=== PATIENT | female | born 1970 | race Caucasian/White ===

== ENCOUNTER 2016-05-19 12:11 | Emergency (ER) | payer OTHER ==
[~2016-05-19] VITALS: Ht 157.5 cm; Wt 59.5 kg
[~2016-05-19 12:11] MED LIST: HYDR-3111 PO; MULT-65 PO
[2016-05-19 12:13] VITALS: BP 152/74; PULSE 78; RESP 24; TEMP 97.9; O2SAT 98
--- NOTE | 2016-05-19 12:54 | PD ---
HPI . neck pain Chief Complaint: Back/ Neck Pain or Injury Time Seen by Provider: 12:44 Travel History International Travel<30 days: No Contact w/Intl Traveler<30days: No Traveled to known affect area: No History of Present Illness HPI Patient presents with a several day history of neck pain. She states that it started in her left neck and has now moved to the right neck. Pain is exacerbated by movement. He states that the pain is severe. It is an aching pain. It is unrelieved by Vicodin. She denies known injury. PFSH Past Medical History Hx Anticoagulant Therapy: No Cardiovascular Problems: No Chemotherapy: No Cerebrovascular Accident: No Diabetes: No Diminished Hearing: No Respiratory: No Immunizations Current: No ?: Unknown Past Surgical History Hysterectomy: No Social History Alcohol Use: Yes ([facility]) Tobacco Use: Yes (1/2) Substance Use: No Allergies-Medications (Allergen,Severity, Reaction): Coded Allergies: No Known Allergies (Unverified , 05/19/16) Reported Meds & Prescriptions Reported Meds & Active Scripts Active Reported Aspirin 81 Mg Tabdr 81 Mg PO DAILY Vicodin (Hydrocodone-Acetaminophen) 5-300 Mg Tab 1 Tab PO Q4H PRN Review of Systems Except as stated in HPI: all other systems reviewed are Neg General / Constitutional: No: Fever, Chills HENT: Positive: Neck Pain Neurologic: No: Weakness, Paresthesia Physical Exam Narrative GENERAL: Awake and alert and in no acute distress. SKIN: Warm and dry. NECK: Diffuse neck tenderness. She will not move her head to side because of pain. CARDIOVASCULAR: Regular rate and rhythm. RESPIRATORY: No accessory muscle use. MUSCULOSKELETAL: No obvious deformities. No edema. NEUROLOGICAL: Awake and alert. No obvious cranial nerve deficits. Motor grossly within normal limits. Normal speech. PSYCHIATRIC: Appropriate mood and affect; insight and judgment normal. Data Data Last Documented VS Vital Signs Date Time Temp Pulse Resp B/P Pulse Ox O2 Delivery O2 Flow Rate FiO2 05/19/16 14:43 70 18 149/78 99 Room Air 05/19/16 12:13 97.9 Orders Lorazepam Inj (Ativan Inj) (05/19/16 13:00) Morphine Inj (Morphine Inj) (05/19/16 13:00) Ct Cerv Spine W/O Contrast (05/19/16 13:39) Ketorolac Inj (Toradol Inj) (05/19/16 13:45) MDM Medical Decision Making Medical Screen Exam Complete: Yes Emergency Medical Condition: Yes Differential Diagnosis Differential diagnosis of neck pain includes but is not limited to muscle spasm/ pain, arthritis, spinal stenosis, HNP, epidural abscess Narrative Course Patient presents with back pain. She has no neurological symptoms. There has been no trauma. Last Impressions Cervical Spine CT 05/19/16 1339 Signed Impressions: Service Date/Time: Thursday, May 19, 2016 14:15 - CONCLUSION: Anterior cervical spine fusion from C5-C7. There is a left-sided osteophyte identified at the level of C5/C6 which contributes to moderate narrowing of the neural foramina on the left.. Lauryn Patel MD Diagnosis Primary Impression: Neck pain Referrals: Abhilash Coleman MD Patient Instructions: Narcotic given in the ED Med/Other Pt SpecificInfo: Prescription(s) given Scripts Cyclobenzaprine (Flexeril)10 Mg Tab10 Mg PO TID #30 TAB Ref 0 Prov:Eloise Paris MD 05/19/16 Prednisone (48) 10 mg tab Dose Pack 10 Mg Dspk10 Mg PO DIRECTED #1 DSPK Ref 0 Prov:Eloise Paris MD 05/19/16 Disposition: 01 DISCHARGE HOME Condition: Stable Eloise Paris MD May 19, 2016 12:54
[2016-05-19] MEDS ORDERED: HYDR-3111 PO (13:00)
[2016-05-19] MEDS ORDERED: ASPI1TAB69 PO (13:00)
[2016-05-19] MEDS ORDERED: LORazepam 2 MG/ML VIAL IM ONE (13:00)
[2016-05-19] MEDS ORDERED: MORPHINE SULFATE 8 MG/ML INJ IM ONE (13:00)
[2016-05-19] MEDS ORDERED: KETOROLAC TROMETHAMINE 60 MG/2 ML (IM) VIAL IM ONE (13:45)
[2016-05-19 14:43] VITALS: BP 149/78; PULSE 70; RESP 18; O2SAT 99
--- NOTE | 2016-05-19 14:52 | RADRPT ---
EXAM DATE/TIME: 05/19/2016 14:15 [facility] COMPARISON: No previous studies available for comparison. INDICATIONS : Neck pain. RADIATION DOSE: 31.42 CTDIvol (mGy) MEDICAL HISTORY : None SURGICAL HISTORY : None. ENCOUNTER: Initial ACUITY: 1 day PAIN SCALE: 2/10 LOCATION: Bilateral neck TECHNIQUE: Volumetric scanning of the cervical spine was performed. Multiplanar reconstructions in the sagittal, coronal and oblique axial planes were performed. Using automated exposure control and adjustment o f the mA and/or kV according to patient size, radiation dose was kept as low as reasonably achievable to obtain optimal diagnostic quality images. FINDINGS: VERTEBRAE: Normal vertebral body height. ALIGNMENT: No evidence of subluxation. There is anterior cervical spine fusion hardware present from the level o f C5-C7 no evidence of hardware complication or failure. C2-C3: The bony spinal canal is normal in size. No evidence of disc bulge or herniation. The neural forami na are bilaterally patent. C3-C4: The bony spinal canal is normal in size. No evidence of disc bulge or herniation. The neural forami na are bilaterally patent. C4-C5: The bony spinal canal is normal in size. No evidence of disc bulge or herniation. The neural forami na are bilaterally patent. C5-C6: There is a left para-foraminal osteophyte which causes moderate narrowing of the left neural foramina at this level. C6-C7: The bony spinal canal is normal in size. No evidence of disc bulge or herniation. The neural forami na are bilaterally patent. C7-T1: The bony spinal canal is normal in size. No evidence of disc bulge or herniation. The neural forami na are bilaterally patent. CONCLUSION: Anterior cervical spine fusion from C5-C7. There is a left-sided osteophyte identified at the level o f C5/C6 which contributes to moderate narrowing of the neural foramina on the left.. Lauryn Patel MD on May 19, 2016 at 14:43 Board Certified Radiologist. This report was verified electronically.
[2016-05-19] MEDS ORDERED: PRED10PA2 PO (15:01)
[2016-05-19] MEDS ORDERED: CYCL1TAB29 PO (15:01)
== END 2016-05-19 15:29 | disposition home or self-care (01) ==
LOC: NEPD 12:11
DX: M54.2 Cervicalgia (principal)
CPT/HCPCS: 72125; 96372; 99283; J1885; J2060; J2270

== ENCOUNTER 2016-12-21 13:41 | Emergency (ER) | payer OTHER ==
[~2016-12-21] VITALS: Ht 160 cm; Wt 60.0 kg
[~2016-12-21 13:41] MED LIST changes: +ASPI1TAB69 PO; +CYCL10TA PO; -MULT-65 PO; +PRED10PA2 PO
[2016-12-21 13:43] VITALS: BP 135/75; PULSE 75; RESP 12; TEMP 97.8; O2SAT 98
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
[2016-12-21] MEDS ORDERED: MAPA500C PO (14:11)
[2016-12-21] MEDS ORDERED: CYCL10TA PO (14:11)
[2016-12-21] MEDS ORDERED: IBUP-232 PO (14:11)
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
== END 2016-12-21 16:04 | disposition home or self-care (01) ==
LOC: NEPK 13:41
DX: S16.1XXA Strain of muscle, fascia and tendon at neck level, initial encounter (principal); S39.012A Strain of muscle, fascia and tendon of lower back, initial encounter; M62.830 Muscle spasm of back; M51.36 Other intervertebral disc degeneration, lumbar region; M50.30 Other cervical disc degeneration, unspecified cervical region; M79.7 Fibromyalgia; M19.90 Unspecified osteoarthritis, unspecified site; F17.200 Nicotine dependence, unspecified, uncomplicated; V43.52XA Car driver injured in collision with other type car in traffic accident, initial encounter
CPT/HCPCS: 72050; 72110; 99284